=== PATIENT | female | born 1985 | race Two or more races ===

== ENCOUNTER 2024-10-14 07:05 | Inpatient (IN) | payer OTHER ==
[2024-10-14] MEDS: ELECTROLYTE-148 SOLN 1,000 ML IV SCH (08:15)
[2024-10-14 08:50] VITALS: BMI 35.6
[2024-10-14] MEDS: DINOPROSTONE 10 MG VAGINAL SUPPOSITORY VG ONE (09:39)
[2024-10-14 11:01] LABS: BASO % 0.6 % (0-2.0); EOS % 0.6 % (0-4.5); HEMATOCRIT 38.1 % (32.4-45.2); HEMOGLOBIN 13.2 GM/dL (10.7-15.3); LYMPH % 14.4 % (8-40); MCH 29.8 pg (25.7-33.7); MCHC 34.7 g/dl (32.0-36.0); MEAN CELL VOLUME 85.9 fl (80-96); MEAN PLT VOLUME 12.4 fl (7.5-11.1); MONO % 8.6 % (3.8-10.2); NEUT % 75.8 % (42.8-82.8); PLATELET COUNT 121 10^3/uL (134-434); RBC 4.44 M/mm3 (3.60-5.2); RDW 14.8 % (11.6-15.6); WHITE BLOOD COUNT 10.9 K/mm3 (4.0-10.0)
[2024-10-14 11:06] LABS: INR 0.93 (0.83-1.09); PROTHROMBIN TIME (PATIENT) 10.5 SEC (9.7-13.0)
[2024-10-14 11:09] LABS: ACTIVATED PTT 25.5 SECONDS (25.2-36.5)
[2024-10-14 11:28] LABS: POTASSIUM 4.3 mmol/L (3.5-5.1)
[2024-10-14 11:30] LABS: BLOOD UREA NITROGEN 11.8 mg/dL (7-18); CALCIUM 9.1 mg/dL (8.5-10.1)
[2024-10-14 11:34] LABS: CREATININE 0.5 mg/dL (0.55-1.3)
[2024-10-14] MEDS ORDERED: OXYTOCIN 20 UNITS in 0.9% NS 20 UNIT/1,000 ML INFUS.BAG IV ONE (22:58)
[2024-10-14] MEDS: OXYTOCIN 30 UNITS in 0.9% NS 30 UNIT/500 ML INFUS.BAG IVPB SCH (23:00)
[2024-10-15] MEDS ORDERED: BUTORPHANOL TARTRATE 1 MG/ML VIAL ONE (05:28)
[2024-10-15] MEDS ORDERED: PROMETHAZINE HCL 25 MG/1 ML VIAL ONE (05:29)
[2024-10-15] MEDS: BUTORPHANOL TARTRATE 1 MG/ML VIAL IVPB ONE (05:40)
[2024-10-15] MEDS: PROMETHAZINE HCL 25 MG/1 ML VIAL IVPB ONE (05:40)
[2024-10-15] MEDS ORDERED: FENTANYL/BUPIVACAINE/NS/PF - PCEA - 50 ML DISP.SYRIN EP ONE ×2 (07:48→12:24)
[2024-10-15] MEDS ORDERED: BUPIVACAINE HCL/PF 0.25% (2.5MG/ML) 10 ML VIAL ONE (07:54)
[2024-10-15] MEDS ORDERED: FENTANYL CITRATE/PF 50 MCG/ML VIAL ONE ×3 (07:54→16:49)
[2024-10-15] MEDS: FENTANYL/BUPIVACAINE/NS/PF - PCEA - 50 ML DISP.SYRIN EP SCH (08:15)
[2024-10-15] MEDS ORDERED: NALOXONE HCL 0.4 MG/ML VIAL IVPUSH PRN (08:16)
[2024-10-15 10:27] LABS: RETICULOCYTES 0.7 % (0.5-1.5)
[2024-10-15 10:45] LABS: GAMMA GLUTAMYL TRANSPEPTIDASE 32 U/L (5-85)
[2024-10-15 10:48] LABS: URIC ACID 3.5 mg/dL (2.6-7.2)
[2024-10-15 10:49] LABS: SGOT/AST 30 U/L (15-37); SGPT/ALT 40 U/L (13-61)
[2024-10-15] MEDS ORDERED: LIDOCAINE HCL 1% PRESERVATIVE FREE - 30ML VIAL ONE (12:29)
[2024-10-15] MEDS ORDERED: OXYTOCIN 20 UNITS in 0.9% NS 20 UNIT/1,000 ML INFUS.BAG IV ONE (12:29)
[2024-10-15] MEDS ORDERED: METHYLERGONOVINE MALEATE 0.2 MG/1 ML AMP IM PRN (15:48)
[2024-10-15] MEDS ORDERED: PROPOFOL 20 ML ONE (16:04)
[2024-10-15] MEDS ORDERED: SUCCINYLCHOLINE CHLORIDE 200 MG/10 ML SYRINGE ONE (16:04)
[2024-10-15] MEDS ORDERED: morphine SULFATE/PF 1 MG/2 ML (2cc Syringe - QUVA) ONE (16:25)
[2024-10-15 17:54] LABS: CORD BASE EXCESS -2.5 mmol/L (0-2); CORD HCO3 23.6 mmHg (20-29); CORD PCO2 44.9 mmHg (30-78); CORD pH 7.338 (7.14-7.44)
[2024-10-15 17:57] LABS: CORD BASE EXCESS -4.3 mmol/L (0-2); CORD HCO3 22.4 mmHg (20-29); CORD PCO2 46.3 mmHg (30-78); CORD pH 7.302 (7.14-7.44)
[2024-10-15] MEDS: OXYTOCIN 20 UNITS in 0.9% NS 20 UNIT/1,000 ML INFUS.BAG IV SCH (18:00)
[2024-10-15] MEDS: CEFAZOLIN 2 GM/D5W 2 GM/50 ML ML IVPB SCH (19:22)
[2024-10-15] MEDS: ACETAMINOPHEN 1000 MG/100 ML BAG IVPB PRN (20:35)
[2024-10-16] MEDS: CEFAZOLIN 2 GM/D5W 2 GM/50 ML ML IVPB SCH (00:20)
[2024-10-16] MEDS ORDERED: oxyCODONE HCL 5 MG TABLET PO PRN (03:48)
[2024-10-16] MEDS: IBUPROFEN 800 MG/8 ML IJ IVPB PRN (06:01)
[2024-10-16 08:00] LABS: BASO % 0.2 % (0-2.0); EOS % 0.4 % (0-4.5); HEMATOCRIT 29.9 % (32.4-45.2); LYMPH % 12.4 % (8-40); MCH 29.1 pg (25.7-33.7); MCHC 33.3 g/dl (32.0-36.0); MEAN CELL VOLUME 87.5 fl (80-96); MEAN PLT VOLUME 12.1 fl (7.5-11.1); MONO % 6.5 % (3.8-10.2); NEUT % 80.5 % (42.8-82.8); PLATELET COUNT 116 10^3/uL (134-434); RBC 3.42 M/mm3 (3.60-5.2); RDW 14.9 % (11.6-15.6); WHITE BLOOD COUNT 12.1 K/mm3 (4.0-10.0)
[2024-10-16] MEDS: ENOXAPARIN NA (PORCINE) 40 MG/0.4 ML DISP.SYRIN SQ SCH (11:20)
[2024-10-16] MEDS: ACETAMINOPHEN 325 MG TABLET (FP) PO PRN (12:47)
[2024-10-16] MEDS: SIMETHICONE 80 MG TAB.CHEW (FP) PO PRN (12:47)
[2024-10-16] MEDS ORDERED: BISACODYL 10 MG SUPP.RECT RC PRN (15:48)
[2024-10-16] MEDS: IBUPROFEN 600 MG TABLET (FP) PO PRN (15:56)
[2024-10-16 18:03] VITALS: RESP 18
[2024-10-17 08:09] LABS: BASO % 0.3 % (0-2.0); EOS % 1.1 % (0-4.5); HEMATOCRIT 28.3 % (32.4-45.2); HEMOGLOBIN 9.2 GM/dL (10.7-15.3); LYMPH % 11.1 % (8-40); MCH 28.8 pg (25.7-33.7); MCHC 32.6 g/dl (32.0-36.0); MEAN CELL VOLUME 88.3 fl (80-96); MEAN PLT VOLUME 11.8 fl (7.5-11.1); MONO % 6.3 % (3.8-10.2); NEUT % 81.2 % (42.8-82.8); PLATELET COUNT 130 10^3/uL (134-434); RDW 14.5 % (11.6-15.6); WHITE BLOOD COUNT 12.1 K/mm3 (4.0-10.0)
[2024-10-18 07:26] LABS: BASO % 0.7 % (0-2.0); EOS % 1.4 % (0-4.5); HEMATOCRIT 27.6 % (32.4-45.2); HEMOGLOBIN 9.1 GM/dL (10.7-15.3); LYMPH % 17.4 % (8-40); MEAN PLT VOLUME 11.5 fl (7.5-11.1); MONO % 7.9 % (3.8-10.2); NEUT % 72.6 % (42.8-82.8); PLATELET COUNT 153 10^3/uL (134-434); RBC 3.13 M/mm3 (3.60-5.2); RDW 14.4 % (11.6-15.6); WHITE BLOOD COUNT 8.5 K/mm3 (4.0-10.0)
[2024-10-18 10:08] VITALS: BP 127/61; PULSE 77; TEMP 98.3
== END 2024-10-18 15:00 | disposition home or self-care (01) | DRG 788 ==
LOC: JLDR 07:05 → J3W 10-15 20:30
PROVIDERS: ADMIT Obstetrics & Gynecology; ATTEND Obstetrics & Gynecology
PROC: 3E0P7VZ Introduction of Hormone into Female Reproductive, Via Natural or Artificial Opening (ICD-10-PCS; 2024-10-14)
PROC: 10D00Z1 Extraction of Products of Conception, Low, Open Approach (ICD-10-PCS; principal; 2024-10-15)
DX: O48.0 Post-term pregnancy (principal); Z3A.40 40 weeks gestation of pregnancy; O62.1 Secondary uterine inertia; O36.8330 Maternal care for abnormalities of the fetal heart rate or rhythm, third trimester, not applicable or unspecified; Z37.0 Single live birth
CPT/HCPCS: 36415; 36600; 80048; 82570; 82803; 82977; 83010; 84156; 84450; 84460; 84550; 85025; 85032; 85045; 85610; 85730; 86780; 86850; 86900; 86901; 88307-TC; J0131